=== PATIENT | female | born 1965 | race Caucasian/White ===

== ENCOUNTER 2016-10-03 19:17 | Emergency (ER) | payer MEDICAID ==
[~2016-10-03] VITALS: Wt 63.0 kg
[~2016-10-03 19:17] MED LIST: IBUP-1542 PO
[2016-10-03] MEDS ORDERED: IBUP800T25 PO (21:59)
[2016-10-03] MEDS ORDERED: IBUPROFEN 800 MG TAB PO ONE (22:00)
[2016-10-03 23:52] VITALS: BP 144/74; PULSE 53; RESP 18; TEMP 98.5
--- NOTE | 2016-10-04 03:00 | ERD ---
ER Documentation Chief Complaint Date/Time DATE: 10/04/16 TIME: 02:54 Chief Complaint BILATERAL HAND PAIN NON TRAUMATIC. MILD SWELLING NO DEFORMITY . HPI Patient is a 51-year-old female complaining of arthritic pain on the left hand and left ankle. Patient states that she ran out of her prescription of ibuprofen and has not been taking it for the past 2 days. Patient denies any trauma, fevers, paresthesia, paresis, chills, shortness of breath, chest pain or headache. ROS All systems reviewed and are negative except as per history of present illness. Medications Home Meds Active Scripts Ibuprofen* (Motrin*) 800 Mg Tab, 800 MG PO Q8H Y for PAIN AND OR ELEVATED TEMP, #30 TAB Prov:ERNESTO MCGINNIS 10/03/16 Ibuprofen* (Motrin*) 600 Mg Tab, 600 MG PO Q6H Y for PAIN AND OR ELEVATED TEMP, #30 TAB Prov:ADRIAN GATICA WHITE SHOE EXAMINER 03/19/16 Allergies Allergies: Uncoded Allergies: PENICILLEN (Allergy, Unknown, 03/19/16) PMhx/Soc Medical and Surgical Hx: pt denies Surgical Hx Hx Miscellaneous Medical Probl: Yes (arthritis) Hx Alcohol Use: No Hx Substance Use: No Hx Tobacco Use: No Physical Exam Vitals Vital Signs Date Time Temp Pulse Resp B/P Pulse Ox O2 Delivery O2 Flow Rate FiO2 10/03/16 23:52 98.5 53 18 144/74 100 Room Air 10/03/16 19:44 98.8 60 21 143/73 98 Physical Exam Physical Exam CONST: Well-developed, well-nourished, in no acute distress. Nontoxic in appearance. HEENT: Atraumatic. Normal Conjunctiva. EOM intact. TM intact. External ear is normal. Clear oropharnyx without erythema. No Uvular deviation. Moist mucous membranes. Supple neck. No meningismus. No submandibular induration. RESP: Clear to auscultation bilaterally. No wheezing. CARDIO: Regular rate and rhythm, no murmurs. ABD: Soft, non tender, non distended. Normal bowel sounds. No McBurney's point tenderness. No guarding or rigidity. No peritoneal signs. SKIN: No petechiae or rashes. BACK: No midline or flank tenderness. EXT: Swollen carpometacarpal joints of the left hand and left lateral ankle. Decreased range of motion of the affected extremities. distal pulses equal and bilateral. NEURO: Awake and alert, appropriate for age Results 24 hrs Current Medications Medications (Trade) Dose Ordered Sig/Kailey Route PRN Reason Start Time Stop Time Status Last Admin Dose Admin Ibuprofen (Motrin) 800 mg ONCE ONCE PO 10/03/16 22:00 10/03/16 22:01 DC 10/03/16 22:55 Procedures/MDM EMERGENCY DEPARTMENT COURSE/MEDICAL DECISION MAKING This is a 51-year-old female who comes to the emergency room secondary to complaints of left hand and left knee joint pain. Patient has exhausted her prescription for Motrin and has not taken any of it for the past 2 days. The patient was given ibuprofen in the department. On re-evaluation, the patient 's symptoms improved. My primary diagnosis is arthritis. Secondary diagnosis are left hand and left ankle pain Differential diagnoses considered, included but not limited to rheumatoid arthritis, muscle strain, bursitis, gout. Pt is hemodynamically stable upon reassessment. The patient was discharged for outpatient management with a prescription for ibuprofen. The patient was advised to followup with their PMD in 1-2 days and to return to the Emergency Department if there are any new or worsening symptoms. The patient understood and agreed with the diagnosis, treatment and plan. Patient is stable for discharge at this time. Departure Diagnosis: Primary Impression: Arthritis Additional Impressions: Left hand pain Left ankle pain Chronicity: chronic Qualified Code: M25.572 - Chronic pain of left ankle Condition: Stable Patient Instructions: What Is Arthritis? Referrals: [facility] () Usted se cobb hecho un examen mdico de control que le indica que no est en analisa condicin que requiera tratamiento urgente en el Departamento de Emergencia. Un estudio ms profundo y el tratamiento de courtney condicin pueden esperar sin ningn riesgo hasta que usted sea atendida/o en el consultorio de courtney mdico o analisa cl yonatan. Es responsabilidad suya arreglar analisa subhash para el seguimiento del jose. MANEJO DE CONDICIONES NO URGENTES EN EL FUTURO 1) Si usted tiene un mdico de atencin primaria: Usted debera llamar a courtney mdico de atencin primaria antes de venir al departamento de emergencia. Despus de las horas de consultorio, courtney doctor o courtney asociado/a est disponible por telfono. El mdico o enfermero de chico en el servicio telefnico puede asesorarle por nate medio para atender el problema, o jose contrario se puede programar analisa subhash. 2) Si usted no tiene un mdico de atencin primaria: Llame al mdico o clnica de referencia que aparece abajo ya las horas de consultorio para hacer analisa subahsh para que le vean. CLINICAS: [facility] [phone] [facility] [phone] [facility] [phone] [facility] [phone] [facility] [phone] [address] [facility]. [phone] [facility] () Usted se cobb hecho un examen mdico de control que le indica que no est en analisa condicin que requiera tratamiento urgente en el Departamento de Emergencia. Un estudio ms profundo y el tratamiento de courtney condicin pueden esperar sin ningn riesgo hasta que usted sea atendida/o en el consultorio de courtney mdico o analisa cl yonatan. Es responsabilidad suya arreglar analisa subhash para el seguimiento del jose. MANEJO DE CONDICIONES NO URGENTES EN EL FUTURO 1) Si usted tiene un mdico de atencin primaria: Usted debera llamar a courtney mdico de atencin primaria antes de venir al departamento de emergencia. Despus de las horas de consultorio, courtney doctor o courtney asociado/a est disponible por telfono. El mdico o enfermero de chico en el servicio telefnico puede asesorarle por nate medio para atender el problema, o jose contrario se puede programar analisa subhash. 2) Si usted no tiene un mdico de atencin primaria: Llame al mdico o condado institucions de referencia que aparece abajo ya las horas de consultorio para hacer analisa subhash para que le vean. SI USTED NO PUEDE PAGAR PARA JOSE UN MEDICO puede ir a: [facility] [address] [place] [address] [facility] [address] [place], [place] [id number] [place] [address] [address] [place] [address] [facility] [address] [place] [address] Additional Instructions: Follow-up with your primary care physician in 1-2 days. Return to the emergency department immediately should you have any new or worsening symptoms, uncontrolled fevers, or other unexplained symptoms. Take all medications as directed. ERNESTO MCGINNIS Oct 04, 2016 03:00
== END 2016-10-03 23:54 | disposition home or self-care (01) ==
LOC: FTE 19:17
DX: M19.042 Primary osteoarthritis, left hand (principal); M19.072 Primary osteoarthritis, left ankle and foot; M25.572 Pain in left ankle and joints of left foot
CPT/HCPCS: Z7502; Z7610; 99283

== ENCOUNTER 2016-12-06 09:01 | Emergency (ER) | payer MEDICAID ==
[~2016-12-06] VITALS: Ht 152.4 cm; Wt 57.8 kg
[~2016-12-06 09:01] MED LIST changes: +IBUP800T25 PO
[2016-12-06 09:05] VITALS: Ht 152.4 cm; Wt 57.8 kg
[2016-12-06] MEDS ORDERED: KETOROLAC 30 MG INJ IM STA (09:36)
[2016-12-06] MEDS ORDERED: ACET500C5 PO (09:50)
--- NOTE | 2016-12-06 09:54 | ERD ---
ER Documentation Chief Complaint Date/Time DATE: 12/06/16 TIME: 09:51 Chief Complaint has artheritis, has joints pain, want meds HPI This a 51-year-old female who presents to the emergency department today complaining of joint pain. States that she has what she thinks is arthritis. Patient states that she has an appointment for her specialist but not until April. States that she has pain in both of her shoulders, her neck, her wrists and her knees. Denies any fevers or chills. States she has been taking Motrin for the pain. Denies any trauma. ROS All systems reviewed and are negative except as per history of present illness. Medications Home Meds Active Scripts Acetaminophen* (Tylophen*) 500 Mg Capsule, 1 CAP PO Q6H Y for PAIN AND OR ELEVATED TEMP, #30 CAP Prov:CORINE ZUÑIGA PA-C 12/06/16 Ibuprofen* (Motrin*) 800 Mg Tab, 800 MG PO Q8H Y for PAIN AND OR ELEVATED TEMP, #30 TAB Prov:ERNESTO MCGINNIS 10/03/16 Ibuprofen* (Motrin*) 600 Mg Tab, 600 MG PO Q6H Y for PAIN AND OR ELEVATED TEMP, #30 TAB Prov:ADRIAN GATICA NP 03/19/16 Allergies Allergies: Uncoded Allergies: PENICILLEN (Allergy, Unknown, 03/19/16) PMhx/Soc History of Surgery: Yes (D & C) Anesthesia Reaction: No Hx Neurological Disorder: No Hx Respiratory Disorders: No Hx Cardiac Disorders: No Hx Psychiatric Problems: No Hx Miscellaneous Medical Probl: Yes (arthritis) Hx Alcohol Use: No Hx Substance Use: No Hx Tobacco Use: No Smoking Status: Never smoker Physical Exam Vitals Vital Signs Date Time Temp Pulse Resp B/P Pulse Ox O2 Delivery O2 Flow Rate FiO2 12/06/16 09:05 98.1 56 18 150/73 99 Physical Exam Const: No acute distress Head: Atraumatic Eyes: Normal Conjunctiva ENT: Normal External Ears, Nose and Mouth. Neck: Full range of motion..~ No meningismus. No midline tenderness. Resp: Clear to auscultation bilaterally Cardio: Regular rate and rhythm, no murmurs bd: Soft, non tender, non distended. Normal bowel sounds Skin: No petechiae or rashes Back: No midline or flank tenderness Ext: No cyanosis, or edema. No erythema or warmth. Full active range of motion of bilateral knees. Decreased range of motion shoulder secondary to pain. Pulses 2+. Distal neurovascularly intact Neur: Awake and alert Psych: Normal Mood and Affect Results 24 hrs Current Medications Medications (Trade) Dose Ordered Sig/Kailey Route PRN Reason Start Time Stop Time Status Last Admin Dose Admin Ketorolac Tromethamine (Toradol) 30 mg ONCE STAT IM 12/06/16 09:36 12/06/16 09:37 DC 12/06/16 09:46 Procedures/MDM This 51-year-old female who presents the emergency department today complaining of chronic pain. Patient indicated that she think she has arthritis. She does have pain in both of her shoulders, her knees and wrists. Patient is afebrile and otherwise well-appearing. There is been no trauma. Do not feel the patient requires laboratory workup or imaging at this time. Low suspicion for acute fracture dislocation, septic joint or gout. Patient symptoms at this time is consistent with acute on chronic pain. Patient's arthritic pain may be rheumatoid in nature versus fibromyalgia. Patient was given a Toradol injection here in the emergency department. I will give her prescription for Tylenol for home. She was instructed to try to get an appointment with her specialist sooner. I have also given her a referral information for Dr. Rosenthal, highway painter helper. At this time the patient is stable for discharge and outpatient management. Patient should follow up with their PCP in the next 1-2 days. They may return to the emergency department sooner for any persistent or worsening of symptoms. Patient understood and agreed with the plan. Departure Diagnosis: Primary Impression: Pain Condition: Fair Patient Instructions: Pain Management Referrals: [facility] (PCP) RAMON ROSENTHAL Additional Instructions: Llame al doctor MICHELLE y tanika analisa SHAWNA PARA DENTRO DE 1-2 PIMENTEL.Dgale a la secretaria que nosotros le instruimos hacer esta shawna.Avise o llame si courtney condicin se empeora antes de la shawna. Regresa aqui si peor o no mejor. Take Tylenol for pain Make an appointment with highway painter helper. I asked her primary care doctor for referral CORINE ZUÑIGA PA-C December 06, 2016 09:54
[2016-12-06 10:00] VITALS: BP 145/78; PULSE 61; RESP 18; TEMP 97.9
== END 2016-12-06 10:00 | disposition home or self-care (01) ==
LOC: FTE 09:01
DX: M25.511 Pain in right shoulder (principal); M25.512 Pain in left shoulder; M54.2 Cervicalgia; M25.532 Pain in left wrist; M25.531 Pain in right wrist; M25.562 Pain in left knee; M25.561 Pain in right knee
CPT/HCPCS: 96372; J1885; Z7502